=== PATIENT | male | born 1975 | race Caucasian/White ===

== ENCOUNTER 2022-01-08 18:50 | Emergency (ER) | payer OTHER ==
[~2022-01-08] VITALS: Ht 188 cm; Wt 117.9 kg
[2022-01-08 19:18] VITALS: BP 150/92
--- NOTE | 2022-01-08 19:25 | NUR ---
AMBULATED TO BED 1 FROM TRIAGE
[2022-01-08] MEDS ORDERED: NAPR-54 PO (19:59)
--- NOTE | 2022-01-08 19:59 | NUR ---
RIGHT SHOULDER PAIN X 2 WEEKS. WAS IN TC 2 WEEKS AGO. SHOULDER WAS SWOLLEN THE DAY AFTER FOR A FEW DAYS. PT WENT TO GYM 2 DAYS AGO AND RIGHT SHOULDER AND ARM WERE SHAKING WHEN LIFTING WEIGHTS AND PAIN RETURNED. WENT TO WORK TODAY AND WAS FEELING PAIN WHEN LIFTING. PT PLACED IN GOWN. DENIES HX, RX AND ALLERGIES
[2022-01-08 20:00] VITALS: BP 150/92
== END 2022-01-08 21:00 | disposition home or self-care (01) ==
LOC: MED 18:50
DX: M25.511 Pain in right shoulder (principal); Z79.899 Other long term (current) drug therapy; V89.2XXA Person injured in unspecified motor-vehicle accident, traffic, initial encounter; Y93.89 Activity, other specified; Y92.89 Other specified places as the place of occurrence of the external cause; Y99.8 Other external cause status
CPT/HCPCS: 73030; 99283; Q0092

== ENCOUNTER 2024-03-12 10:12 | Emergency (ER) | payer OTHER ==
[~2024-03-12] VITALS: Ht 185.4 cm; Wt 115.7 kg
[~2024-03-12 10:12] MED LIST: NAPR-337 PO
[2024-03-12 10:30] VITALS: BP 168/87; PULSE 92; RESP 18; TEMP 97.3; O2SAT 99
[2024-03-12 12:10] VITALS: O2SAT 99
[2024-03-12] MEDS ORDERED: METH-1681 PO (12:20)
[2024-03-12] MEDS ORDERED: NAPR-337 PO (12:20)
[2024-03-12 12:37] VITALS: BP 168/87; PULSE 92; RESP 18; TEMP 97.3; O2SAT 99
== END 2024-03-12 12:45 | disposition home or self-care (01) ==
LOC: MED 10:12
DX: M54.50 Low back pain, unspecified (principal); R03.0 Elevated blood-pressure reading, without diagnosis of hypertension; Z79.899 Other long term (current) drug therapy
CPT/HCPCS: 99283